=== PATIENT | female | born 1985 | race Caucasian/White ===

== ENCOUNTER 2020-04-24 23:46 | Emergency (ER) | payer MEDICAID ==
[~2020-04-24] VITALS: Ht 165.1 cm; Wt 58.1 kg
[2020-04-24 23:51] VITALS: BP 117/80
[2020-04-25] MEDS ORDERED: CYCL-1 PO (00:08)
[2020-04-25] MEDS ORDERED: IBUP-1985 PO (00:08)
[2020-04-25] MEDS ORDERED: ketorolac trometh inj. 60 MG/2 ML VIAL IM ONE (00:10)
== END 2020-04-25 00:25 | disposition home or self-care (01) ==
LOC: ER 23:47
DX: M54.12 Radiculopathy, cervical region (principal); M54.2 Cervicalgia; R25.2 Cramp and spasm; F41.9 Anxiety disorder, unspecified; Z79.899 Other long term (current) drug therapy
CPT/HCPCS: 96372; 99283; J1885

== ENCOUNTER 2020-12-23 20:24 | Emergency (ER) | payer MEDICAID ==
[~2020-12-23] VITALS: Ht 165.1 cm; Wt 63.6 kg
[~2020-12-23 20:24] MED LIST: CYCL-1 PO; IBUP-1985 PO
[2020-12-23] MEDS ORDERED: ALPRAZolam 0.5mg tablet PO ONE (21:20)
[2020-12-23] MEDS ORDERED: ALPR-624 PO (21:31)
[2020-12-23 21:41] VITALS: BP 112/81
== END 2020-12-23 21:45 | disposition home or self-care (01) ==
LOC: ER 20:25
DX: F41.9 Anxiety disorder, unspecified (principal); R07.89 Other chest pain; Z79.899 Other long term (current) drug therapy
CPT/HCPCS: 93005; 99283

== ENCOUNTER 2024-06-04 12:01 | Outpatient (CLI) | payer MEDICAID ==
[~2024-06-04 12:01] MED LIST changes: +ALPR-624 PO
== END 2024-06-04 23:59 | disposition home or self-care (01) ==
LOC: RAD 12:01
PROVIDERS: ATTEND Nurse Practitioner Family
DX: N88.8 Other specified noninflammatory disorders of cervix uteri (principal); N89.8 Other specified noninflammatory disorders of vagina
CPT/HCPCS: 76830; 76856; 93976